=== PATIENT | male | born 1975 | race Caucasian/White ===

== ENCOUNTER 2019-08-09 11:15 | Emergency (ER) | payer OTHER, SELFPAY ==
[2019-08-09 11:20] VITALS: BP 181/100; PULSE 97; RESP 12; TEMP 36.8; O2SAT 99
--- NOTE | 2019-08-09 11:22 | W.ED.GENAD ---
Discharge Plan Disposition Patient Disposition: HOME Condition: Good Discharge Details Chief Complaint: GenMedical Clinical Impression: Chronic pain Primary Care Provider: None,None ED Provider: Arminda Trevizo Home Meds and New Rx's Prescriptions: No Action No Known Home Meds RF: 0 Discharge Instructions Instructions: Chronic Pain (ED) Additional Instructions: Encourage water intake. Please encourage gentle stretching and range of motion. Referral for physical therapy is attached. You may continue with Tylenol and/or ibuprofen as needed for discomfort. You may continue with topical patches that are available [id number] such as Lidoderm or Salonpas patches. You had an appointment scheduled with your primary care this afternoon, please call to reschedule this soon as possible to discuss your chronic pain issues. They referred you to pain management at [facility] in the past, you may call them to reschedule appointment and discuss your chronic pain once again. If you develop new or worsening symptoms please seek care urgently once again. As discussed, should you wish to seek care for any opiate dependence, please [facility] [phone] Stand Alone Forms: Physical Therapy Referral Referrals: Mala Pillai [NURSE PRACTITIONER] - Discharge Data Discharge Date/Time-TO BE ENTERED AT DEPARTURE: 08/09/19 13:06 Medical Decision Making Patient is a 44-year-old male presenting today with chief complaint of left hip pain. 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 States he has had 4 surgeries for bony excision historically. Patient reports that the femoral head and left side has been surgically removed historically for the osteosarcoma. States that this can occasionally flare. States that he last had episode of pain in his hip associated with a flare over 5 months ago. States that this flare began approximately 3 weeks ago after a fall. States that he slipped on some ice and fell backwards. States the pain is in the same location is been historically in the more anterior hip. He denies any numbness or tingling. States the pain is worse with movement. Is prescribed 800 mg ibuprofen but he reports that this is not working. States that he did receive 1 prescription for oxycodone at [facility] but that this was unsuccessful in alleviating his pain. He reports that [place] was [place] he had to run several miles a day and this also exacerbated his hip pain in his left continued discomfort. 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 On exam, patient appears tremulous. Does not appear to be in any acute distress. Uncommonly patients take off shoes, he is able to perform full external rotation to put foot onto his contralateral knee without any evidence of discomfort. He ambulated in the department without any evidence of discomfort. However, when I try to range the hip he has exquisite tenderness with particularly with external rotation. He has good strength. No saddle paresthesias. No evidence of cauda equina. During exam, patient is also now reporting that he has severe lumbar back pain which also has the tendency to flare. He yells in discomfort even prior to touching the spine. Pain extends from the lower thoracic through the lumbar spine. No step-off is palpable. No evidence of trauma. His reaction seems greatly exaggerated compared to finding on exam. Again, no evidence of cauda equina or other emergent etiology. Patient's history changes frequently. He discusses multiple grandiose historical events. I did review the PDMP and noted that the patient has received 17 prescriptions from 14 different prescribers in the past year. I contacted the primary care center listed on this. And was able to schedule with both Luh Pacheco NP as well as Mala Mina NP. Both of them had very similar histories. Luh Pacheco reported that the patient was fired from their office as he denied having a primary care but in fact was actually seeing Mala Mina as well. She reports that his story is never made sense and also reported that he was lying frequently to the department. He was seeing a psychiatrist for OCD and altered tactile sense. She reports that he gone to the emergency department in [place] multiple times and there was concern for drug-seeking behavior. Mala Escobedo NP reiterated very similar issue. She reports that the patient in fact has a appointment with them today at 1 PM but that he often no-shows appointments. They also are concerned that he may be withdrawing from opioids and often appears psychotic when he comes to the present office. Both report they have referred him to the pain clinic but he has no showed these appointments as well. They report that his stories are often convoluted and different between the stories being told at the primary care's office compared to what has been noted in the emergency department. As the patient is endorsing severe pain in the left hip and lumbar spine complaint imaging was obtained. However, the patient's history I will not be prescribing any narcotics at this time. We will instead discuss long-term narcotic treatment and will offer referral to the [facility] clinic. XR reviewed by radiologist: FINDINGS: No acute fracture or subluxation is present. Soft tissues are unremarkable. IMPRESSION: No acute fracture or subluxation in the lumbar spine. FINDINGS: BONES: No acute fracture is present. No bony destructive lesion is seen. JOINTS: No dislocation present. SOFT TISSUE: Normal. IMPRESSION: Unremarkable radiographs of the left hip. Unremarkable radiographs of the pelvis Discussed these findings with the patient. I expressed my concern regarding the PDMP and the discussions between myself and his primary care physicians. He seems to have good knowledge of this despite not being forth coming with this information initially and denying using narcotics as were found on the PDMP. I advised that we would not be prescribing further narcotics. Multiple non narcotic options were discussed including other pharmacologic options, stretching, physical therapy, referral to pain management. He is declining this at this point. However, he does have a pain management referral already established and I encouraged he go and continue with care as was previously advised. Also encourage use of physical therapy and referral given despite hesitancy on the part of hte patient. Advised that he will have referral should he change his mind. He was given return precautions. All of his quesitons and concerns were addressed, he is in agreement iwth this plan. HPI General Mode of arrival: ambulatory. Date/Time Provider Initiated Documentation: 08/09/19 11:22. Limitations to Documentation: no limitations. Information obtained by: patient and RN notes reviewed. History of Present Illness 44 year old M presents to the emergency department with the chief complaint of lumbar back pain and left hip pain, described as similar to prior episodes (has had multiple flares historically), with intensity rated at >10. Quality is described as crushing, and is localized to the back, pelvis (anterior) and left. Patient reports no radiation. Patient started experiencing this week(s) (3) Related Data Home Medications Medication Instructions Recorded Confirmed Unknown [No Known Home Meds] 08/09/19 08/09/19 Allergies Allergy/AdvReac Type Severity Reaction Status Date / Time erythromycin base Allergy Unverified 08/09/19 11:23 tree nut Allergy Unverified 08/09/19 11:23 General Stated Complaint: GenMedical DANE: 3 Review of Systems Constitutional Constitutional: Reports as per HPI, Denies chills, Denies fever(s), Denies headache(s) and Denies weakness ENT Ears, Nose, Mouth, and Throat: Denies headache(s) Cardiovascular Cardiovascular: Reports as per HPI Respiratory Respiratory: Reports as per HPI and Denies cough Musculoskeletal Musculoskeletal: Reports as per HPI and Denies tingling Integumentary/Breasts Skin/Breast: Reports as per HPI, Denies rash and Denies wounds Neurologic Neurologic: Reports as per HPI, Denies headache(s), Denies tingling, Denies paresthesias and Denies weakness [facility] Social History Smoking/Tobacco Use Status: Never Alcohol Intake: never Drug use: Never Substance use type: does not use Do you feel safe at home: Yes Do you feel safe in your relationship?: Yes Exam Const General: cooperative, healthy appearing, comfortable, no acute distress, well developed and well groomed Nutritional Appearance: average body habitus and well nourished Orientation: alert and awake Resp Effort & Inspection: normal respiratory effort, able to speak in complete sentences and no respiratory distress Auscultation: clear to auscultation bilaterally Cardio Rate: regular rate Rhythm: regular rhythm Heart Sounds: S1 normal and S2 normal Back/Spine/Pelvis Back: no CVA tenderness Cervical Spine: normal cervical lordosis Thoracic/Lumbar Spine: thoracic and lumbar spine normal to inspection, straight leg raise negative bilaterally, No paraspinal tenderness, No thoracic spinal tenderness, lumbar spinal tenderness (patient iwll not allow for a completed diagnosis, not reproducible) and other (pain out of proportion, however, he can roll on his back with no pain) Pelvis: no pain with anterior-posterior compression, no pain with lateral compression, no buttock ecchymosis, no buttock tenderness and no unilateral elevation of iliac crest Sacroiliac joints: bilaterally nontender Skin General skin exam: no rashes or lesions noted Lesions: no lesions Rashes: no rashes Trauma: no lacerations or abrasions Neuro General: alert and awake Cognition: normal cognition Speech: speech normal Gait: normal gait Motor: muscle tone normal throughout, strength 5/5 throughout (in BLE ), no movement abnormalities noted and no fasciculations Sensory Exam: no sensory deficits noted (no saddle paresthesias) DTR's: Rt Patellar: 2+, Lt Patellar: 2+, Rt Ankle: 2+ and Lt Ankle: 2+ Psych Appearance: grossly normal and well kempt Mental Status: mental status grossly normal Speech and Movement: speech and movement normal Course Vital Signs Vital signs: Vital Signs Temperature 36.8 C 08/09/19 11:20 Pulse 97 H 08/09/19 11:20 Respiratory Rate 12 08/09/19 11:20 Blood Pressure 181/100 H 08/09/19 11:20 Pulse Oximetry 99 08/09/19 11:20 Temperature 36.8 C 08/09/19 11:20 Temperature Source Temporal Artery Scan 08/09/19 11:20 Pulse 97 H 08/09/19 11:20 Respiratory Rate 12 08/09/19 11:20 Respiratory Effort Non-Labored 08/09/19 11:21 Blood Pressure 181/100 H 08/09/19 11:20 Blood Pressure Position Sitting 08/09/19 11:20 Pulse Oximetry 99 08/09/19 11:20 Oxygen Delivery Method Room Air 08/09/19 11:20 Oxygen Flow Rate 0 08/09/19 11:20 Pain Level 10 08/09/19 11:20
--- NOTE | 2019-08-09 11:35 | NUR.NOTE ---
Nursing Note: Patient has hx of left hip pain, fell a few weeks ago-since has had bilateral lower back pain. Left hip pain worsens with movement. States he has tried taking tylenol/ibuprofen for pain with no relief.
--- NOTE | 2019-08-09 12:02 | DI.RAD_ITS ---
EXAM: XR HIP LT COMPLETE AP PELVIS CLINICAL HISTORY: recurrent pain, recent fall. TECHNIQUE: 2D digital imaging was performed. COMPARISON: No exams were available for comparison FINDINGS: BONES: No acute fracture is present. No bony destructive lesion is seen. JOINTS: No dislocation present. SOFT TISSUE: Normal. IMPRESSION: Unremarkable radiographs of the left hip. Unremarkable radiographs of the pelvis
--- NOTE | 2019-08-09 12:06 | DI.RAD_ITS ---
EXAM: XR LUMBAR SPINE AP, LAT INDICATION: fall. COMPARISON: No exams were available for comparison TECHNIQUE: 2D digital imaging was performed. FINDINGS: No acute fracture or subluxation is present. Soft tissues are unremarkable. IMPRESSION: No acute fracture or subluxation in the lumbar spine.
[2019-08-09] MEDS: Acetaminophen 500 MG TAB 1000 MG PO (12:19)
[2019-08-09] MEDS: Ibuprofen 800 MG TAB PO (12:19)
[2019-08-09] MEDS: Lidocaine 5% Patch 1 PATCH TP (12:20)
[2019-08-09 12:21] VITALS: BP 156/98; PULSE 93; RESP 16; TEMP 37; O2SAT 99
[2019-08-09 13:03] VITALS: BP 150/92; PULSE 86; O2SAT 97
== END 2019-08-09 13:06 | disposition home or self-care (01) ==
PROVIDERS: Emergency Provider Physician Assistant
DX: M54.5 Low back pain (principal); M25.552 Pain in left hip; G89.29 Other chronic pain
CPT/HCPCS: 99284; 72100; 73502; 99283